=== PATIENT | male | born 1985 | race Caucasian/White ===

== ENCOUNTER 2018-12-13 12:02 | Emergency (ER) | payer OTHER ==
[2018-12-13 12:16] VITALS: BP 113/90
--- NOTE | 2018-12-13 13:02 | XRAY Report ---
Reason: pain/swelling after fall Procedure Date: 12/13/2018 Accession Number: [id number] / [id number] Procedure: XR - Knee 3 View LT CPT Code: FULL RESULT: EXAM: LEFT KNEE RADIOGRAPHY EXAM DATE: 12/13/2018 12:35 PM. CLINICAL HISTORY: Pain/swelling after fall. COMPARISON: None. TECHNIQUE: 3 views. FINDINGS: Bones: Normal. No fractures or bone lesions. Joints: Normal. No effusion. No subluxations. Soft Tissues: Normal. No soft tissue swelling. IMPRESSION: Normal knee radiography. [facility]
--- NOTE | 2018-12-13 13:06 | ED Physician Documentation ---
PD HPI LOWER EXT INJURY - Stated complaint Stated Complaint: L KNEE PAIN - Chief complaint Chief Complaint: Ext Problem - History obtained from History obtained from: Patient - History of Present Illness PD HPI LOW EXT INJURY LOCATION: Left, Knee Type of injury: Twist Where injury occurred: Work Timing - onset: Today Timing - details: Abrupt onset Severity Comments: moderate Improved by: Immobilization Worsened by: Moving Associated symptoms: No: Weakness, Numbness Similar symptoms before: Diagnosis Recently seen: Other (recently injury his the same knee) Review of Systems Constitutional: denies: Fever, Chills Eyes: denies: Discharge Ears: denies: Ear pain Nose: denies: Congestion Cardiac: denies: Chest pain / pressure Skin: denies: Laceration (s) Musculoskeletal: reports: Extremity pain, Joint pain. denies: Neck pain Psychiatric: denies: Depressed Immunocompromised: denies: Chemotherapy PD PAST MEDICAL HISTORY - Past Medical History Past Medical History: Yes Other Past Medical History: Gout - Past Surgical History Past Surgical History: Yes Ortho: ACL reconstruction, Rotator cuff repair - Allergies Allergies/Adverse Reactions: Allergies Allergy/AdvReac Type Severity Reaction Status Date / Time No Known Drug Allergies Allergy Verified 12/13/18 12:10 - Social History Does the pt smoke?: No Smoking Status: Never smoker Does the pt drink ETOH?: Yes Does the pt have substance abuse?: No - Immunizations Immunizations are current?: Yes - POLST Patient has POLST: No PD ED PE NORMAL - General General: Alert and oriented X 3, No acute distress - HEENT HEENT: Atraumatic, PERRL, EOMI, Ears normal - Derm Derm: Normal color - Extremities Extremities: No deformity. No: No tenderness to palpate, Normal ROM s pain (The patient has diffuse tenderness of the left knee, there is some mild swelling and the patient has decreased range of motion secondary to pain. A comprehensive examination of the knee is limited secondary to the acute pain and swelling. The patient has no tenderness in any other joint. There is no erythematous or skin changes) Results - Vitals Vitals: Vital Signs - 24 hr 12/13/18 12:06 Temperature 35.6 C L Heart Rate 88 Respiratory 14 Rate Blood Pressure 113/90 H O2 Saturation 99 Oxygen O2 Source Room air - Rads (name of study) Knee XR Radiology: Final report received, See rad report PD MEDICAL DECISION MAKING - ED course ED course: The patient has acute strain to the knee, a thorough exam is limited secondary to the acute injury. The patient be placed in a knee immobilizer and was instructed to weight-bear as tolerated. I recommended follow-up with orthopedics once the pain and swelling subsides for a repeat examination for possible ligamentous or meniscus injury. The patient understands and agrees. The patient will return for any worsening or concerns Departure - Departure Disposition: 01 Home, Self Care Clinical Impression: Strain of knee Qualifiers: Encounter type: initial encounter Laterality: unspecified laterality Qualified Code(s): S86.919A - Strain of unspecified muscle(s) and tendon(s) at lower leg level, unspecified leg, initial encounter Condition: Good Instructions: ED Sprain Knee Follow-Up: [facility] [Provider Group] - Within 1 week (Please follow up for further management of your knee injury. Please call to schedule an appointment ) Comments: Please return to the emergency department for worsening symptoms or any concerns
== END 2018-12-13 13:35 | disposition home or self-care (01) ==
LOC: ED 12:02
DX: S86.919A Strain of unspecified muscle(s) and tendon(s) at lower leg level, unspecified leg, initial encounter (principal); W13.4XXA Fall from, out of or through window, initial encounter; X50.1XXA Overexertion from prolonged static or awkward postures, initial encounter; Y99.0 Civilian activity done for income or pay
CPT/HCPCS: 99283